=== PATIENT | male | born 2000 | race Caucasian/White ===

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

== ENCOUNTER 2020-08-24 09:37 | Emergency (ER) | payer OTHER ==
[~2020-08-24] VITALS: Ht 165.1 cm; Wt 97.5 kg
[~2020-08-24 09:37] MED LIST changes: +PREDNISONE10 M1 PO; +ZITHROMAX250 MG PO
[2020-08-24 12:03] LABS: BILIRUBIN Negative (Negative); BLOOD Negative (Negative); CLARITY Clear (Clear); COLOR Yellow (Yellow); GLUCOSE Negative (Negative); KETONE Negative (Negative); LEUKO ESTERASE Negative (Negative); NITRITE Negative (Negative); PH 6.5 (4.5-8.0); UROBILINOGEN 0.2 E.U./dl (0.0-1.0)
[2020-08-24 12:25] LABS: EPITHELIAL CELLS 0-2; WBC 0-2 wbc/hpf (0-5)
[2020-08-24] MEDS ORDERED: IBUPROFEN600 MG PO (13:25)
== END 2020-08-24 13:29 | disposition home or self-care (01) ==
LOC: ED 09:37
PROVIDERS: Physician Assistant
DX: N43.3 Hydrocele, unspecified (principal); Z79.899 Other long term (current) drug therapy

== ENCOUNTER 2022-02-15 14:40 | Emergency (ER) | payer OTHER ==
[~2022-02-15] VITALS: Wt 86.2 kg
[~2022-02-15 14:40] MED LIST changes: +IBUPROFEN600 MG PO
[2022-02-15] MEDS ORDERED: PROVENTIL HFA6.7 GM INH (23:00)
== END 2022-02-15 23:33 | disposition home or self-care (01) ==
LOC: ED 14:40
DX: U09.9 Post COVID-19 condition, unspecified (principal); Z79.2 Long term (current) use of antibiotics; Z79.899 Other long term (current) drug therapy

== ENCOUNTER → 2022-11-24 | Outpatient (CLI) | payer BC ==
[~2022-11-24] MED LIST changes: +PROVENTIL HFA6.7 GM INH
== END | disposition home or self-care (01) ==
LOC: US 11:00
PROVIDERS: ATTEND Nurse Practitioner Family
DX: N50.3 Cyst of epididymis (principal)

== ENCOUNTER 2023-07-24 09:52 | Emergency (ER) | payer BC ==
[~2023-07-24] VITALS: Ht 167.6 cm; Wt 93.0 kg
[2023-07-24] MEDS ORDERED: Albuterol Sulf/Ipratropium 3 ML VIAL NEB ONE (10:10)
[2023-07-24 10:24] LABS: BASO % 0.4 % (0.0-1.0); EOS # 0.2 10*3/uL (0.0-0.4); EOS % 3.1 % (1.0-4.0); HEMATOCRIT 44.8 % (42.0-52.0); LYMPH # 2.1 10*3/uL (1.3-4.4); MEAN CELL VOLUME 87.8 fl (80.0-94.0); MEAN CORPUSCULAR HGB 30.2 pg (27.0-31.0); MEAN CORPUSCULAR HGB CONC 34.4 g/dl (33.0-37.0); MEAN PLATELET VOLUME 10.2 fl (9.6-12.3); MONO # 0.5 10*3/uL (0.1-1.0); MONO % 7.5 % (3.0-9.0); NEUT # 4.2 10*3/uL (2.3-7.9); NEUT % 58.7 % (47.0-73.0); PLATELET COUNT AUTOMATED 259 10*3/uL (130-400); WHITE BLOOD COUNT 7.1 10*3/uL (4.8-10.8)
[2023-07-24 10:35] LABS: ACT PARTIAL THROMBO TIME 27.6 SECONDS (20.0-32.1)
[2023-07-24 10:50] LABS: ALKALINE PHOSPHATASE 68 U/L (46-116); BUN 11 mg/dl (9-23); CHLORIDE 105 mmol/L (98-107); POTASSIUM 3.7 mmol/L (3.4-5.1); SGPT/ALT 34 U/L (5-49)
[2023-07-24] MEDS ORDERED: MELOXICAM15 MG PO (10:57)
== END 2023-07-24 11:03 | disposition home or self-care (01) ==
LOC: ED 09:52
PROVIDERS: Internal Medicine
DX: R07.89 Other chest pain (principal); R06.02 Shortness of breath; J45.909 Unspecified asthma, uncomplicated

== ENCOUNTER 2024-04-09 09:01 | Emergency (ER) | payer BC ==
[~2024-04-09] VITALS: Ht 167.6 cm; Wt 95.3 kg
[~2024-04-09 09:01] MED LIST changes: +MELOXICAM15 MG PO
[2024-04-09] MEDS ORDERED: Dexamethasone Sodium Phospha 20 MG/5 ML VIAL IM ONE (10:05)
[2024-04-09] MEDS ORDERED: TAMIFLU 75MG CA75 MG PO (11:21)
[2024-04-09] MEDS ORDERED: MEDROL DOSEPAK4 MG PO (11:21)
== END 2024-04-09 11:35 | disposition home or self-care (01) ==
LOC: ED 09:01
DX: J10.1 Influenza due to other identified influenza virus with other respiratory manifestations (principal); Z20.822 Contact with and (suspected) exposure to COVID-19; J45.909 Unspecified asthma, uncomplicated; Z88.8 Allergy status to other drugs, medicaments and biological substances

== ENCOUNTER 2024-11-18 15:18 | Emergency (ER) | payer BC ==
[~2024-11-18] VITALS: Ht 167.6 cm; Wt 102.1 kg
[~2024-11-18 15:18] MED LIST changes: +TAMIFLU 75MG CA75 MG PO
[2024-11-18] MEDS ORDERED: DOCUSATE SODIUM 100 MG/10 ML UDC OT ONE (15:55)
[2024-11-18] MEDS ORDERED: OCUFLOX 5 ML5 ML OT (18:07)
[2024-11-18] MEDS ORDERED: OFLOXACIN 0.3% 5 ML BOTTLE OT ONE (18:10)
== END 2024-11-18 19:06 | disposition home or self-care (01) ==
LOC: ED 15:18
DX: H61.23 Impacted cerumen, bilateral (principal); E66.9 Obesity, unspecified; J45.909 Unspecified asthma, uncomplicated; Z68.30 Body mass index [BMI] 30.0-30.9, adult; Z86.16 Personal history of COVID-19